=== PATIENT | male | born 1955 | race Caucasian/White ===

== ENCOUNTER 2020-02-27 13:55 | Outpatient (CLI) | payer MEDICARE, MEDICAID, SELFPAY ==
--- NOTE | ~2020-02-27 | XR_ITS ---
XR chest 2V DATE: 02/27/2020 14:14 INDICATION: Shortness of breath on exertion. Lump left chest wall. TECHNIQUE: PA and lateral views COMPARISON: None FINDINGS: No hilar or mediastinal enlargement. No pleural effusion or pulmonary vascular congestion o r pneumothorax. There are reticular appearing infiltrates throughout the left lung, greater in the lower lung. There is mild patchy infiltrate or atelectasis in the right lower lung. Included skeletal structures are unremarkable. IMPRESSION: Diffuse reticular infiltrate of the left lung and in patchy infiltrate or atelectasis in the right lower lung Reviewed, dictated and finalized at location A. IMPRESSION: Diffuse reticular infiltrate of the left lung and in patchy infiltr ate or atelectasis in the right lower lung
--- NOTE | ~2020-02-27 | US_ITS ---
US soft tissue chest 02/27/2020 14:27 Indication: Left chest lump for 5 months. Procedure: High-resolution ultrasound of the left breast and axilla Comparison: No prior studies for comparison. Findings: In the periareolar location of the left breast at 12:00 near the nipple there is heterogene ous soft tissue with mixed posterior attenuation. In the left axilla there are multiple lymph nodes, largest measuring 2 cm. Impression: 1: Heterogeneous predominantly hypoechoic periareolar soft tissue of the right breast, most likely be nign gynecomastia. Recommend correlation with mammogram. 2: Benign-appearing left axillary lymph nodes, largest measuring 2 cm. BI-RADS CATEGORY 0 - INCOMPLETE STUDY, NEED ADDITIONAL IMAGING EVALUATION. Reviewed, dictated and finalized at location A. Impression: 1: Heterogeneous predominantly hypoechoic periareolar soft tissue of the right breast, most likely benign gynecomastia. Recommend correlation with mammogram. 2: Benign-appearing left axillary lymph nodes, largest measuring 2 cm. BI-RADS CATEGORY 0 - INCOMPLETE STUDY, NEED ADDITIONAL IMAGING EVALUATION.
== END 2020-02-27 13:56 | disposition home or self-care (01) ==
PROVIDERS: PCP Physician Assistant; Visit Provider Physician Assistant
DX: R22.2 Localized swelling, mass and lump, trunk (principal); R06.02 Shortness of breath
CPT/HCPCS: 71046; 76604

== ENCOUNTER 2020-03-11 08:31 | Outpatient (CLI) | payer MEDICARE, MEDICAID, SELFPAY ==
--- NOTE | ~2020-03-11 | MM_ITS ---
EXAMINATION: MM diagnostic bartolome LT w samanta HISTORY: Palpable breast mass TECHNIQUE: Full field digital mediolateral oblique views of both breasts were obtained. Craniocaudal view of the left breast is also performed. CAD analysis was submitted and interpreted. COMPARISON: No prior mammogram is available for comparison at this institution. BREAST PARENCHYMAL COMPOSITION: The breasts are almost entirely fatty. FINDINGS: There is bilateral gynecomastia, left greater than right. This corresponds to the sonograph ic finding in question. No suspicious mass, calcification, or architectural distortion are identified . IMPRESSION: 1. Asymmetric gynecomastia, left greater than right, without mammographic evidence of malignancy. Cli nical follow-up is recommended. BI-RADS Category 2: Benign finding(s). Reviewed, dictated and finalized at location A. 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 Asymmetric gynecomastia, left greater than right, without mammographic evide nce of malignancy. Clinical follow-up is recommended. BI-RADS Category 2: Benign finding(s).
== END 2020-03-11 08:32 | disposition home or self-care (01) ==
LOC: CHSIMG 08:33
PROVIDERS: PCP Physician Assistant; Visit Provider Physician Assistant
DX: N64.59 Other signs and symptoms in breast (principal)
CPT/HCPCS: 77061; 77065; G0279

== ENCOUNTER 2020-04-14 12:56 | Outpatient (CLI) | payer MEDICARE, MEDICAID, SELFPAY ==
--- NOTE | ~2020-04-14 | CT_ITS ---
EXAMINATION: CT lung screening DATE: 04/14/2020 13:16 INDICATION: Personal history of tobacco dependence. TECHNIQUE: Computed tomography (CT) of the chest was performed without intravenous contrast. The dose -length product was 122.61 mGy-cm. Automated exposure control and iterative reconstruction technique were employed. COMPARISON: Chest x-ray dated 02/27/2020 FINDINGS: No thoracic lymphadenopathy. There is atherosclerosis. There is gynecomastia. Heart size no rmal. No significant pleural or pericardial effusion. There is gallbladder distention. No definite ga llstones, although gallbladder incompletely visualized. There is splenomegaly. There is coarse peripheral interstitial lung disease with evidence for honeycombing and areas of trac tion bronchiectasis, consistent with chronic pulmonary fibrosis and pattern consistent with usual int erstitial pneumonia. There are a few small scattered subpleural nodules measuring 3 mm or less. No pn eumothorax. No acute osseous abnormality. IMPRESSION: 1. Lung-RADS category 2: Benign appearance or behavior. Continue annual screening with noncontrast lo w-dose chest CT in 12 months. 2: Coarse interstitial lung disease, likely chronic in a pattern consistent with usual interstitial p neumonia. Reviewed, dictated and finalized at location A. 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 Lung-RADS category 2: Benign appearance or behavior. Continue annual screeni ng with noncontrast low-dose chest CT in 12 months. 2: Coarse interstitial lung disease, likely chronic in a pattern consistent wit h usual interstitial pneumonia.
== END 2020-04-14 12:57 | disposition home or self-care (01) ==
LOC: CHSIMG 12:58
PROVIDERS: PCP Physician Assistant; Visit Provider Internal Medicine Hematology & Oncology
DX: Z12.2 Encounter for screening for malignant neoplasm of respiratory organs (principal); Z87.891 Personal history of nicotine dependence
CPT/HCPCS: G0297